=== PATIENT | female | born 1995 | race Caucasian/White ===

== ENCOUNTER 2016-09-30 17:08 | Emergency (ER) | payer OTHER ==
[~2016-09-30] VITALS: Ht 167.6 cm; Wt 49.9 kg
[2016-09-30 17:15] VITALS: BP 124/82
--- NOTE | 2016-09-30 17:24 | NUR ---
Patient ambulated to bed 3. RN evaluating patient at bedside.
--- NOTE | 2016-09-30 17:30 | NUR ---
Dr. Easley evaluating patient at bedside.
--- NOTE | 2016-09-30 17:54 | NUR ---
21/F TO ED WITH C/O FACIAL PAIN TO RIGHT SIDE OF FACE AND RIGHT ELBOW S/P WALKING INTO DOOR JAM. NO LOC. PAIN 02/24. LUNGS CLEAR BILAT. HR EVEN AND REGULAR. AAOX4. VSS. NO SIGNS OF DISTRESS.
[2016-09-30 18:42] VITALS: BP 124/82
--- NOTE | 2016-09-30 18:43 | NUR ---
Patient discharged with v/s stable. Written and verbal after care instructions given and explained. Patient verbalized understanding. Ambulatory with steady gait. All questions addressed prior to discharge. Advised to follow up with PMD.
== END 2016-09-30 18:43 | disposition home or self-care (01) ==
LOC: MED 17:08
DX: S05.11XA Contusion of eyeball and orbital tissues, right eye, initial encounter (principal); Z91.040 Latex allergy status; X58.XXXA Exposure to other specified factors, initial encounter; Y93.89 Activity, other specified; Y92.89 Other specified places as the place of occurrence of the external cause; Y99.8 Other external cause status
CPT/HCPCS: 70486; 81025; 99284